=== PATIENT | female | born 1960 | race Caucasian/White ===

== ENCOUNTER → 2017-11-07 | Outpatient (CLI) | payer OTHER ==
[~2017-11-07] MED LIST: (None)15 G1 EXT; ALBU90OI INH; ALBU90OI6 INH; ALLER-TEC D 5-1 EACH PO; BUDE6HFA INH; CETI5 PO; ESTR.625; ESTRADIOL/TESTOSTERO; FLONASE SENSIM5.9 ML; GLIP5 PO; HYDACE5 PO; MAGCIT300 PO; METF500 PO; METF500C PO; MONT10T PO; NAPR500 PO; OXCA300 PO; OXYACE5T PO; OXYACE7.5T PO; PROAIR RESPICL90 MCG INH; PROM25 PO; Pravachol40 MG PO; RXOXYACE PO; TAMS.4ER PO
[2017-11-09 11:29] LABS: HPV Genotype 16 Not Detected (NOTDET); HPV Genotype 18 Not Detected (NOTDET)
[2017-11-14 13:20] LABS: HPV High Risk Other Not Detected (NOTDET)
== END | disposition home or self-care (01) ==
LOC: LAB 12:19
PROVIDERS: Nurse Practitioner Obstetrics & Gynecology
DX: Z01.419 Encounter for gynecological examination (general) (routine) without abnormal findings (principal)
CPT/HCPCS: 87624; G0123

== ENCOUNTER 2018-05-19 06:05 | Day surgery (SDC) | payer OTHER ==
[~2018-05-19] VITALS: Ht 162.6 cm; Wt 98.2 kg
[~2018-05-19 06:05] MED LIST changes: -(None)15 G1 EXT; -ALLER-TEC D 5-1 EACH PO; -ESTRADIOL/TESTOSTERO; -FLONASE SENSIM5.9 ML; -GLIP5 PO; -METF500C PO; -NAPR500 PO; -PROAIR RESPICL90 MCG INH
[2018-05-19] MEDS ORDERED: GLIP5 PO (07:02)
== END 2018-05-19 08:40 | disposition home or self-care (01) ==
LOC: ORSCSDS 06:05
PROVIDERS: Orthopaedic Surgery
PROC: 01N50ZZ Release Median Nerve, Open Approach (ICD-10-PCS; principal; 2018-05-19 07:30)
DX: G56.02 Carpal tunnel syndrome, left upper limb (principal); E11.9 Type 2 diabetes mellitus without complications; G51.0 Bell's palsy; E66.01 Morbid (severe) obesity due to excess calories; Z68.37 Body mass index [BMI] 37.0-37.9, adult; K21.9 Gastro-esophageal reflux disease without esophagitis; J45.909 Unspecified asthma, uncomplicated; Z79.899 Other long term (current) drug therapy
CPT/HCPCS: 82947; J0690; J2250; J2405; J3010; J7120

== ENCOUNTER → 2018-06-09 | Outpatient (CLI) | payer OTHER ==
[~2018-06-09] MED LIST changes: +GLIP5 PO
== END | disposition home or self-care (01) ==
LOC: LAB SHORT 16:01 → LAB 16:01
DX: N39.0 Urinary tract infection, site not specified (principal)
CPT/HCPCS: 87077; 87086; 87186

== ENCOUNTER → 2019-06-27 | Outpatient (CLI) | payer OTHER ==
[~2019-06-27] MED LIST changes: +(None)15 G1 EXT; +ALLER-TEC D 5-1 EACH PO; +ESTRADIOL/TESTOSTERO; +FLONASE SENSIM5.9 ML; +METF500C PO; +NAPR500 PO; +PROAIR RESPICL90 MCG INH
== END ==
LOC: LAB 17:30 → LAB SHORT 17:30
DX: N39.0 Urinary tract infection, site not specified (principal)
CPT/HCPCS: 87077; 87086; 87186

== ENCOUNTER → 2019-07-13 | Outpatient (CLI) | payer OTHER | LOC: LAB 08:30 → LAB SHORT 08:30 | DX: R35.0 Frequency of micturition (principal) | CPT/HCPCS: 87086 ==

== ENCOUNTER 2019-08-09 10:40 | Day surgery (SDC) | payer OTHER ==
[~2019-08-09] VITALS: Ht 162.6 cm; Wt 92.8 kg
[~2019-08-09 10:40] MED LIST changes: +CONEST.625 VAG; +Estrace Vagin42.5 GM VAG; +Flonase 0.05% N16 GM; +PREG75 PO
--- NOTE | 2019-08-09 11:28 | NUR ---
08/09/19 1128 Sheree Becker O2 10L VIA NON REBREATHER
== END 2019-08-09 12:06 | disposition home or self-care (01) ==
LOC: ORSCSDS 10:40
PROVIDERS: Surgery
PROC: 0DJD8ZZ Inspection of Lower Intestinal Tract, Via Natural or Artificial Opening Endoscopic (ICD-10-PCS; principal; 2019-08-09 12:00)
DX: Z12.11 Encounter for screening for malignant neoplasm of colon (principal); K57.30 Diverticulosis of large intestine without perforation or abscess without bleeding; Z86.010 Personal history of colon polyps; Z80.0 Family history of malignant neoplasm of digestive organs; E11.9 Type 2 diabetes mellitus without complications; E78.5 Hyperlipidemia, unspecified; G47.33 Obstructive sleep apnea (adult) (pediatric); Z79.84 Long term (current) use of oral hypoglycemic drugs; Z79.899 Other long term (current) drug therapy
CPT/HCPCS: 82947; J2250; J2704; J7120

== ENCOUNTER → 2020-02-29 | Outpatient (CLI) | payer OTHER | END | disposition home or self-care (01) | LOC: LAB SHORT 16:08 → LAB 16:08 | DX: N39.0 Urinary tract infection, site not specified (principal) | CPT/HCPCS: 87086 ==

== ENCOUNTER 2020-07-10 10:20 | Day surgery (SDC) | payer OTHER | END 2020-07-10 22:54 | disposition home or self-care (01) | LOC: US 10:20 | DX: M75.32 Calcific tendinitis of left shoulder (principal) | CPT/HCPCS: 20611; J3301 ==

== ENCOUNTER → 2020-08-27 | Outpatient (CLI) | payer OTHER ==
[2020-08-27 20:42] LABS: Microalbumin, Random Urine <5.000 mg/L (0.000-20.000)
== END | disposition home or self-care (01) ==
LOC: LAB 17:43
PROVIDERS: Family Medicine
DX: E11.9 Type 2 diabetes mellitus without complications (principal)
CPT/HCPCS: 82043; 82570

== ENCOUNTER → 2022-03-22 | Outpatient (CLI) | payer OTHER ==
[2022-03-23 11:30] LABS: Candida species (DNA Probe) Negative (NEGATIVE); G. vaginalis (DNA Probe) Negative (NEGATIVE); T. vaginalis (DNA Probe) Negative (NEGATIVE)
== END | disposition home or self-care (01) ==
LOC: LAB SHORT 10:00 → LAB 10:00
PROVIDERS: Family Medicine
DX: N89.8 Other specified noninflammatory disorders of vagina (principal)
CPT/HCPCS: 87480; 87510; 87660

== ENCOUNTER 2022-08-13 06:06 | Day surgery (SDC) | payer OTHER ==
[~2022-08-13] VITALS: Ht 160 cm; Wt 88.1 kg
[2022-08-13] MEDS ORDERED: OZEMPIC0.25 MG/0. SC (06:53)
--- NOTE | 2022-08-13 08:06 | NUR ---
08/13/22 0806 Genesis Rascon POPITEAL DONE BY DR ISSA IN OR ON OPERATIVE LEG. SITE CHECK COMPLETE. PT HAD VERSED 2MG PRIOR. PT TOLERATED BLOCK WELL. VSS.
== END 2022-08-13 11:30 | disposition home or self-care (01) ==
LOC: ORSCSDS 06:06
PROVIDERS: Podiatrist Foot & Ankle Surgery
PROC: 0SRF0JZ Replacement of Right Ankle Joint with Synthetic Substitute, Open Approach (ICD-10-PCS; 2022-08-13)
PROC: 0L8S3ZZ Division of Right Ankle Tendon, Percutaneous Approach (ICD-10-PCS; principal; 2022-08-13 07:30)
DX: M19.171 Post-traumatic osteoarthritis, right ankle and foot (principal); M25.671 Stiffness of right ankle, not elsewhere classified; M65.871 Other synovitis and tenosynovitis, right ankle and foot; I10 Essential (primary) hypertension; E11.9 Type 2 diabetes mellitus without complications; E66.9 Obesity, unspecified; Z68.34 Body mass index [BMI] 34.0-34.9, adult; Z79.84 Long term (current) use of oral hypoglycemic drugs; Z79.899 Other long term (current) drug therapy
CPT/HCPCS: 82947; A9270; C1776; J0171; J0690; J0735; J1100; J1885; J2250; J2370; J2405; J2704; J2795; J3010; J7120

== ENCOUNTER → 2023-06-13 | Outpatient (CLI) | payer OTHER ==
[~2023-06-13] MED LIST changes: +OZEMPIC0.25 MG/0. SC
== END ==
LOC: LAB 15:30 → LAB SHORT 15:30
DX: N39.0 Urinary tract infection, site not specified (principal)
CPT/HCPCS: 87077; 87086; 87186

== ENCOUNTER → 2023-09-06 | Outpatient (CLI) | payer OTHER | LOC: LAB 15:15 → LAB SHORT 15:15 | DX: N39.0 Urinary tract infection, site not specified (principal) | CPT/HCPCS: 87086 ==

== ENCOUNTER → 2024-01-09 | Outpatient (CLI) | payer OTHER | END | disposition home or self-care (01) | LOC: LAB SHORT 15:31 → LAB 15:31 | DX: N39.0 Urinary tract infection, site not specified (principal) | CPT/HCPCS: 87086 ==

== ENCOUNTER 2024-07-10 05:56 | Day surgery (SDC) | payer OTHER ==
[~2024-07-10] VITALS: Ht 162.6 cm; Wt 80.5 kg
[2024-07-10] VITALS (16 sets, daily range): BP systolic 75–156; BP diastolic 44–96
[~2024-07-10 05:56] MED LIST changes: +MELO7.5 PO; +OZEMPIC2 MG/0.75 SC; +PRAV20 PO
[2024-07-10] MEDS ORDERED: Ropivacaine 0.5% HCl/Pf 123.125 MG,EPINEPHrine HCL 0.25 MG,Ketorolac Tromethamine 15 MG... INFIL SCH (06:15)
[2024-07-10] MEDS ORDERED: Acetaminophen 500 MG Tab PO SCH ×2 (06:15→16:00)
[2024-07-10] MEDS ORDERED: Tranexamic Acid 100 ML IV SCH (06:15)
[2024-07-10] MEDS ORDERED: CeFAZolin Sodium 2,000 MG in NS 100 ML IV SCH ×2 (06:15→16:00)
[2024-07-10] MEDS ORDERED: Lactated Ringer's 1,000 ML IV SCH ×2 (06:15→09:25)
[2024-07-10] MEDS ORDERED: Chlorhexidine Mouth Care 15 ML UDC MT SCH (06:15)
[2024-07-10] MEDS ORDERED: OxyCODONE HCL 10 MG TABCR PO SCH (06:15)
--- NOTE | 2024-07-10 06:21 | NUR ---
Ambulatory in Day SurgeryPre-Op teaching done. Pt verbalizes understanding. History, Chart, Medications and Allergies reviewed before start of procedure.Patient confirms NPO status and agrees with scheduled surgery.
[2024-07-10] MEDS ORDERED: DORZOPSO (06:38)
[2024-07-10] MEDS ORDERED: LATA.005SO LEFTEYE (06:39)
[2024-07-10] MEDS ORDERED: Midazolam HCl 1MG / ML 2ML Vial IV ONE (07:30)
[2024-07-10] MEDS ORDERED: propofoL 100 ML IV ONE (07:30)
[2024-07-10] MEDS ORDERED: ePHEDrine Sulfate 50 MG/ML 1ML Injection ONE (09:15)
[2024-07-10] MEDS ORDERED: Albumin (Human) 12.5gm/250ml 250 ML IV ONE (09:17)
[2024-07-10] MEDS ORDERED: Ondansetron HCl 2 MG / ML 2ML Vial IV PRN (09:25)
[2024-07-10] MEDS ORDERED: Promethazine HCl 25 MG Tab PO PRN (09:25)
[2024-07-10] MEDS ORDERED: Metoclopramide HCl 5MG / ML 2ML Vial IV PRN (09:25)
[2024-07-10] MEDS ORDERED: HYDROmorphone HCl/Pf 1MG SYR IV PRN (09:30)
[2024-07-10] MEDS ORDERED: Bisacodyl 10 MG Supp PR PRN (09:30)
[2024-07-10] MEDS ORDERED: DiphenhydrAMINE HCL 25 MG Cap PO PRN (09:30)
[2024-07-10] MEDS ORDERED: Magnesium Hydroxide Conc 10 ML UDC PO PRN (09:30)
[2024-07-10] MEDS ORDERED: FLU VACC TS2024-25(6MOS UP)/PF 45 MCG/0.5 ML SYRINGE IM PRN (09:30)
[2024-07-10] MEDS ORDERED: TraMADol HCl 50 MG Tab PO PRN (09:35)
[2024-07-10] MEDS ORDERED: Phenylephrine HCl 100 MCG/ML-NS 10MLSYR (1MG/10ML) ONE (10:24)
[2024-07-10] MEDS ORDERED: Phenylephrine HCl 10mg/ml 1 ml Vial ONE (10:24)
[2024-07-10] MEDS ORDERED: Ketorolac Tromethamine 15mg Vial IV SCH (12:00)
[2024-07-10] MEDS ORDERED: DORZOLAMIDE-TIM10 ML LEFTEYE (12:08)
[2024-07-10] MEDS ORDERED: TRAM50 PO (12:08)
[2024-07-10] MEDS ORDERED: ASPI81CH PO (15:19)
--- NOTE | 2024-07-10 17:01 | NUR ---
DISCHARGE S/P LTHA PT LEFT VIA WHEELCHAIR. PT AMBULATED WELL WITH THERAPY, DENIES PAIN DURING SHIFT. ALL PRESCRIPTIONS PICKED UP PRIOR TO SURGERY. ABLE TO VOID. TOLERATING DIET WELL. ALL INSTRUCTIONS GONE OVER WITH PATIENT AND SPOUSE. ALL BELONGINGS WITH PATIENT. DRESSING CDI, EXTRA DRESSINGS GIVEN WITH PATIENT.
[2024-07-10] MEDS ORDERED: Docusate Sodium 100 MG Cap PO SCH (21:00)
[2024-07-10] MEDS ORDERED: Pravastatin Sodium 20 MG Tab PO SCH (21:00)
[2024-07-10] MEDS ORDERED: Dorzolamide/Timolol Opth Soln 10 ML LEFTEYE SCH (21:00)
[2024-07-10] MEDS ORDERED: Latanoprost 0.005% Opth Soln 2.5 ML LEFTEYE SCH (21:00)
[2024-07-11] MEDS ORDERED: Meloxicam 7.5 MG Tab PO SCH (09:00)
[2024-07-11] MEDS ORDERED: Aspirin 81 MG Chew PO SCH (09:00)
[2024-07-11] MEDS ORDERED: Montelukast Sodium 10 MG Tab PO SCH (09:00)
[2024-07-16] MEDS ORDERED: SEMAGLUTIDE SC SCH (10:30)
== END 2024-07-10 17:01 | disposition home or self-care (01) ==
LOC: ORSCMMR 05:56 → ORD 07:30 → ORSCMMR 07:30 → SURS 09:54 → ORSCMMR 17:01
PROVIDERS: Orthopaedic Surgery
PROC: 0SRB0JZ Replacement of Left Hip Joint with Synthetic Substitute, Open Approach (ICD-10-PCS; principal; 2024-07-10 07:30)
DX: M16.12 Unilateral primary osteoarthritis, left hip (principal); I10 Essential (primary) hypertension; E78.5 Hyperlipidemia, unspecified; E11.9 Type 2 diabetes mellitus without complications; J45.909 Unspecified asthma, uncomplicated; Z79.899 Other long term (current) drug therapy
CPT/HCPCS: 72170; 82947; 97110; 97116; 97162; 97530; A6010; A9270; C1776; J0171; J0690; J0735; J1885; J2250; J2371; J2704; J2795; J7120; P9045

== ENCOUNTER 2024-08-21 13:06 | Day surgery (SDC) | payer OTHER ==
[~2024-08-21] VITALS: Ht 162.6 cm; Wt 79.0 kg
[~2024-08-21 13:06] MED LIST changes: +ASPI81CH PO; +DORZOLAMIDE-TIM10 ML LEFTEYE; +DORZOPSO; +LATA.005SO LEFTEYE; +Lactated Ringer's 1,000 ML IV ONE; +TRAM50 PO
[2024-08-21] MEDS ORDERED: Lactated Ringer's 1,000 ML IV ONE (13:44)
[2024-08-21] MEDS ORDERED: propofoL 50 ML IV ONE (13:53)
[2024-08-21] MEDS ORDERED: Lidocaine HCl/Pf 1% 5 ML VIAL ONE (13:54)
[2024-08-21 15:13] VITALS: BP 98/64
== END 2024-08-21 15:19 | disposition home or self-care (01) ==
LOC: ORSCSDS 13:06
PROVIDERS: Surgery
PROC: 0DBH8ZX Excision of Cecum, Via Natural or Artificial Opening Endoscopic, Diagnostic (ICD-10-PCS; principal; 2024-08-21 14:45)
DX: Z12.11 Encounter for screening for malignant neoplasm of colon (principal); Z86.0100 Personal history of colon polyps, unspecified; Z80.0 Family history of malignant neoplasm of digestive organs; D12.0 Benign neoplasm of cecum; K57.30 Diverticulosis of large intestine without perforation or abscess without bleeding; E11.9 Type 2 diabetes mellitus without complications; G47.30 Sleep apnea, unspecified; Z79.85 Long-term (current) use of injectable non-insulin antidiabetic drugs; Z79.899 Other long term (current) drug therapy
CPT/HCPCS: 82947; 88305; J2003; J2704; J7120

== ENCOUNTER → 2024-08-22 | Outpatient (CLI) | payer OTHER ==
[~2024-08-22] MED LIST changes: -Lactated Ringer's 1,000 ML IV ONE
[2024-08-22 15:47] LABS: Source, Urine Clean Catch
[2024-08-22 17:36] LABS: Appearance, Urine Clear (Clear); Bilirubin, Urine Neg (Neg); Blood, Urine 3+ (Neg); Color, Urine Yellow (P-Yellow); Glucose Qualitative, Urine Neg (Neg); Ketones, Urine Neg (Neg); Leukocyte Esterase, Urine 3+ (Neg); Nitrite, Urine Neg (Neg); Protein, Urine 2+ (Neg); Specific Gravity, Urine 1.015 (1.003-1.022); Urobilinogen, Urine NORM (Normal); pH, Urine 6.5 (5.0-8.0)
[2024-08-22 17:47] LABS: White Blood Cells, Urine 25-50 /hpf (0-5)
[2024-08-22 17:48] LABS: Bacteria Few /hpf; Squamous Epithelial Cells Not Seen /hpf (Few)
== END | disposition home or self-care (01) ==
LOC: LAB 15:45 → LAB SHORT 15:45
PROVIDERS: Physician Assistant
DX: N39.0 Urinary tract infection, site not specified (principal); R30.0 Dysuria
CPT/HCPCS: 81001; 87077; 87086; 87186

== ENCOUNTER → 2025-08-01 | Outpatient (CLI) | payer OTHER | LOC: LAB SHORT 12:54 → LAB 12:54 | DX: N39.0 Urinary tract infection, site not specified (principal) | CPT/HCPCS: 87077; 87086; 87186 ==